=== PATIENT | male | born 1990 | race Caucasian/White ===

== ENCOUNTER 2017-08-06 07:28 | Emergency (ER) | payer MEDICAID ==
[2017-08-06 07:40] VITALS: BP 136/80; PULSE 73; RESP 16; TEMP 98; O2SAT 100; BMI 37.2
[2017-08-06] MEDS ORDERED: Sodium Chloride 0.9% 1,000 ML IV STA (07:58)
--- NOTE | 2017-08-06 08:03 | ED PDOC ---
HPI: Abdomen Time Seen by Provider: 08/06/17 07:43 Chief Complaint (Nursing): GI Problem Chief Complaint (Provider): GI Problem History Per: Patient History/Exam Limitations: no limitations Onset/Duration Of Symptoms: Days (x2) Current Symptoms Are (Timing): Still Present Additional Complaint(s): Oscar Do is a 26 year old male with a chief complaint of intermittent epigastric pain that he has been experiencing for the past 2 days with associated diarrhea and two episodes of vomiting. Patient denies any fever or genitourinary symptoms. Past Medical History Reviewed: Historical Data, Nursing Documentation, Vital Signs Vital Signs: Last Vital Signs Temp 98.0 F 08/06/17 07:38 Pulse 73 08/06/17 07:38 Resp 16 08/06/17 07:38 BP 136/80 08/06/17 07:38 Pulse Ox 100 08/06/17 10:13 - Medical History PMH: Kidney Stones, Chronic Kidney Disease - Family History Family History: States: Unknown Family Hx - Home Medications Home Medications: Ambulatory Orders Medication Instructions Recorded Famotidine [Pepcid] 20 mg PO BID #20 tab 08/06/17 Ondansetron ODT [Zofran ODT] 4 mg PO Q8H PRN #20 odt 08/06/17 - Allergies Allergies/Adverse Reactions: Allergies Allergy/AdvReac Type Severity Reaction Status Date / Time No Known Allergies Allergy Verified 07/04/15 09:02 Review of Systems Constitutional: Negative for: Fever Gastrointestinal: Positive for: Vomiting (x2), Abdominal Pain (epigastric), Diarrhea Genitourinary Male: Negative for: Dysuria, Frequency, Incontinence, Hematuria Physical Exam - Reviewed Nursing Documentation Reviewed: Yes Vital Signs Reviewed: Yes - Physical Exam Appears: Positive for: Non-toxic, No Acute Distress Head Exam: Positive for: ATRAUMATIC, NORMOCEPHALIC Skin: Positive for: Normal Color, Warm Eye Exam: Positive for: Normal appearance, EOMI, PERRL ENT: Positive for: Normal ENT Inspection Neck: Positive for: Normal, Painless ROM Cardiovascular/Chest: Positive for: Regular Rate, Rhythm. Negative for: Murmur Respiratory: Positive for: Normal Breath Sounds. Negative for: Wheezing Gastrointestinal/Abdominal: Positive for: Tenderness (mild epigastric/Right upper quadrant TTP. Negative Jewell's sign.). Negative for: Normal Exam, Rebound Back: Positive for: Normal Inspection. Negative for: L CVA Tenderness, R CVA Tenderness Extremity: Positive for: Normal ROM. Negative for: Deformity, Swelling Neurologic/Psych: Positive for: Alert, Oriented. Negative for: Motor/Sensory Deficits - Laboratory Results Result Diagrams: 08/06/17 08:00 08/06/17 08:00 - ECG O2 Sat by Pulse Oximetry: 100 (RA) Pulse Ox Interpretation: Normal Medical Decision Making Medical Decision Making: Impression: Gastroenteritis Plan: * US Abdomen * CMP * CBC * Lipase * Urine dip * Urinaysis * Bentyl 20 mg PO * Zofran 4 mg IV * NaCl 1000 mLs at 1000 mLs/hr * Reevaluation US Abdomen FINDINGS: LIVER: Measures 15.7 cm in length. Normal echogenicity of the liver parenchyma. No mass. No intrahepatic bile duct dilatation. GALLBLADDER: Unremarkable. No gallstones. COMMON BILE DUCT: Measures 3.0 mm. No stones. No dilatation. PANCREAS: The tail of the pancreas is obscured by overlying bowel gas with remainder unremarkable. RIGHT KIDNEY: Measures 13.3 cm in length. Normal echogenicity. No calculus, mass, or hydronephrosis. AORTA: Obscured by bowel gas. IVC: Obscured by bowel gas. OTHER FINDINGS: None . IMPRESSION: Unremarkable liver and visualized biliary tree. However, the pancreas is obscured by overlying bowel gas with the tail with the remainder unremarkable. No obstructive uropathy right kidney. Abdominal aorta and inferior vena cava are obscured by overlying bowel gas. Scribe Attestation: Documented by Thania Johnson, acting as a scribe for Jessi Rizo MD. Provider Scribe Attestation: All medical record entries made by the Scribe were at my direction and personally dictated by me. I have reviewed the chart and agree that the record accurately reflects my personal performance of the history, physical exam, medical decision making, and the department course for this patient. I have also personally directed, reviewed, and agree with the discharge instructions and disposition. Disposition - Clinical Impression Clinical Impression: Gastroenteritis - Disposition Referrals: [facility] [Outside] Disposition: Routine/Home Disposition Time: 10:29 Condition: STABLE Prescriptions: Famotidine [Pepcid] 20 mg PO BID #20 tab Ondansetron ODT [Zofran ODT] 4 mg PO Q8H PRN #20 odt PRN Reason: Nausea/Vomiting Instructions: Gastroenteritis (ED) Forms: [facility] (Maltese), [facility] ED School/Work Excuse
[2017-08-06 08:17] LABS: BASO # 0.1 K/uL (0.0-0.2); BASO % 0.7 % (0.0-2.0); EOS # 0.1 K/uL (0.0-0.7); EOS % 1.7 % (0.0-4.0); HEMOGLOBIN 17.8 g/dL (12.0-18.0); LYMPH # 2.2 K/uL (1.0-4.3); LYMPH % 30.2 % (20.0-40.0); MEAN CORPUSCULAR HEMOGLOBIN 31.9 pg (27.0-31.0); MEAN PLATELET VOLUME 8.9 fl (7.2-11.7); MONO # 0.9 K/uL (0.0-0.8); MONO % 12.3 % (0.0-10.0); NEUT # 3.9 K/uL (1.8-7.0); NEUT % 55.1 % (50.0-75.0); NRBC % 0.2 % (0.0-0.0); RBC 5.58 Mil/uL (4.40-5.90); RED CELL DISTRIBUTION WIDTH 13.2 % (11.5-14.5); WHITE BLOOD COUNT 7.1 K/uL (4.8-10.8)
[2017-08-06 08:23] LABS: ALB/GLOB RATIO 1.3 (1.0-2.1); ALBUMIN 4.3 g/dL (3.5-5.0); ALT/SGPT 52 U/L (21-72); AST/SGOT 25 U/L (17-59); BLOOD UREA NITROGEN 14 mg/dl (9-20); CALCIUM 9.2 mg/dL (8.4-10.2); GFR AFRICAN-AMERICAN > 60; GFR NON-AFRICAN AMERICAN > 60; LIPASE 53 U/L (23-300)
[2017-08-06 09:07] LABS: SQUAMOUS EPITHIAL < 1 /hpf (0-5); URINE AMORPHOUS SEDIMENT RARE /ul (<OCC); URINE BACTERIA RARE (<OCC); URINE BILIRUBIN NEGATIVE (NEGATIVE); URINE BLOOD SMALL (NEGATIVE); URINE CLARITY SLIGHTY-CLOUDY (Clear); URINE COLOR YELLOW (YELLOW); URINE GLUCOSE (UA) NEG (Normal); URINE LEUKOCYTE ESTERASE NEG Leu/uL (Negative); URINE NITRATE NEGATIVE (NEGATIVE); URINE PROTEIN NEGATIVE (NEGATIVE); URINE UROBILINOGEN 0.2-1.0 mg/dL (0.2-1.0)
--- NOTE | 2017-08-06 09:49 | US ---
HISTORY: Epigastric/RUQ pain COMPARISON: Unenhanced and pelvis CT 07/04/2015. TECHNIQUE: Sonographic evaluation of the right upper quadrant of the abdomen. FINDINGS: LIVER: Measures 15.7 cm in length. Normal echogenicity of the liver parenchyma. No mass. No intrahepatic bile duct dilatation. GALLBLADDER: Unremarkable. No gallstones. COMMON BILE DUCT: Measures 3.0 mm. No stones. No dilatation. PANCREAS: The tail of the pancreas is obscured by overlying bowel gas with remainder unremarkable. RIGHT KIDNEY: Measures 13.3 cm in length. Normal echogenicity. No calculus, mass, or hydronephrosis. AORTA: Obscured by bowel gas. IVC: Obscured by bowel gas. OTHER FINDINGS: None . IMPRESSION: Unremarkable liver and visualized biliary tree. However, the pancreas is obscured by overlying bowel gas with the tail with the remainder unremarkable. No obstructive uropathy right kidney. Abdominal aorta and inferior vena cava are obscured by overlying bowel gas.
== END 2017-08-06 10:37 | disposition home or self-care (01) ==
LOC: H.ER 07:28
DX: K52.9 Noninfective gastroenteritis and colitis, unspecified (principal); Z87.442 Personal history of urinary calculi
CPT/HCPCS: 76705; 80053; 81003; 83690; 85025; 96360; 99283; J2405; J7040

== ENCOUNTER 2017-08-29 20:48 | Emergency (ER) | payer MEDICAID ==
[2017-08-29 20:48] VITALS: BMI 37.2
[2017-08-29 21:06] VITALS: BP 143/70; PULSE 64; RESP 17; TEMP 97.9; O2SAT 98
--- NOTE | 2017-08-29 21:15 | ED PDOC ---
HPI: CCC, URI, Sore Throat Time Seen by Provider: 08/29/17 21:08 Chief Complaint (Nursing): Cough, Cold, Congestion Chief Complaint (Provider): cough History Per: Patient History/Exam Limitations: no limitations Have you had recent travel within the past 21 days to any of the following countries: [place], [place], [place] or [place]?: No Onset/Duration Of Symptoms: Days (2) Current Symptoms Are (Timing): Still Present Location Of Pain: denies: Ear(s), Throat, Sinus/es, Diffuse Myalgias, Headache Sick Contacts (Context): None Associated Symptoms: Cough. denies: Fever, Chills, Sore Throat, Sputum, Neck Pain, Sinus Drainage, Myalgias, Nasal Congestion, Nausea, Vomiting, Diarrhea Ear Symptoms: Bilateral: None Past Medical History Reviewed: Historical Data, Nursing Documentation, Vital Signs Vital Signs: Last Vital Signs Temp 97.9 F 08/29/17 21:03 Pulse 64 08/29/17 21:03 Resp 17 08/29/17 21:03 BP 143/70 08/29/17 21:03 Pulse Ox 98 08/29/17 21:03 - Medical History PMH: Kidney Stones, Chronic Kidney Disease - Family History Family History: States: Unknown Family Hx - Home Medications Home Medications: Ambulatory Orders Medication Instructions Recorded Famotidine [Pepcid] 20 mg PO BID #20 tab 08/06/17 Ondansetron ODT [Zofran ODT] 4 mg PO Q8H PRN #20 odt 08/06/17 Albuterol HFA [Ventolin HFA 90 2 puff IH Q6 #200 puff 08/29/17 mcg/actuation (8 g)] Dextromethorphan Polistirex 30 mg PO BID #100 [email or web address] 08/29/17 [Delsym] - Allergies Allergies/Adverse Reactions: Allergies Allergy/AdvReac Type Severity Reaction Status Date / Time No Known Allergies Allergy Verified 07/04/15 09:02 Review of Systems ROS Statement: Except As Marked, All Systems Reviewed And Found Negative Constitutional: Negative for: Fever, Chills Respiratory: Positive for: Cough. Negative for: Shortness of Breath, Sputum Physical Exam - Reviewed Nursing Documentation Reviewed: Yes Vital Signs Reviewed: Yes - Physical Exam Appears: Positive for: Well, Non-toxic, No Acute Distress Skin: Positive for: Normal Color, Warm, DRY Eye Exam: Positive for: EOMI, Normal appearance, PERRL ENT: Positive for: Normal ENT Inspection Cardiovascular/Chest: Positive for: Regular Rate, Rhythm Respiratory: Positive for: CNT, Normal Breath Sounds Neurologic/Psych: Positive for: Alert, Oriented - ECG O2 Sat by Pulse Oximetry: 98 Medical Decision Making Medical Decision Making: dx: viral-d/c with delysm and albuterol with f.u with pmd Disposition - Clinical Impression Clinical Impression: Cough - Patient ED Disposition Is Patient to be Admitted: No Counseled Patient/Family Regarding: Studies Performed, Diagnosis, Need For Followup, Rx Given - Disposition Disposition: Routine/Home Disposition Time: 21:15 Condition: STABLE Prescriptions: Albuterol HFA [Ventolin HFA 90 mcg/actuation (8 g)] 2 puff IH Q6 #200 puff Dextromethorphan Polistirex [Delsym] 30 mg PO BID #100 [email or web address] Instructions: Upper Respiratory Infection (ED)
== END 2017-08-29 21:50 | disposition home or self-care (01) ==
LOC: H.ER 20:48
DX: J06.9 Acute upper respiratory infection, unspecified (principal); Z87.442 Personal history of urinary calculi

== ENCOUNTER 2017-12-21 06:53 | Emergency (ER) | payer MEDICAID, OTHER ==
[2017-12-21 06:53] VITALS: BMI 37.2
[2017-12-21 07:15] VITALS: BP 107/72; PULSE 75; RESP 18; TEMP 97.6; O2SAT 98
--- NOTE | 2017-12-21 08:09 | ED PDOC ---
HPI: CCC, URI, Sore Throat Time Seen by Provider: 12/21/17 07:05 Chief Complaint (Nursing): ENT Problem Chief Complaint (Provider): Sore throat History Per: Patient History/Exam Limitations: no limitations Onset/Duration Of Symptoms: Days (x2) Current Symptoms Are (Timing): Still Present Location Of Pain: Throat Sick Contacts (Context): Family Member(s) (13 month old son) Associated Symptoms: Sore Throat. denies: Fever, Chills, Other (urinary symptoms) Ear Symptoms: Bilateral: None Additional Complaint(s): Oscar Do is a 27 year old male, with no significant past medical history , who presents to the emergency department complaining of sore throat onset for x2 days. He is also complaining of a cough at night. Patient reports last week he had a cold and came to the ER concerned the symptoms might come back. He took ibuprofen last night with minimal relief. Patient states his 13 month old son is sick at home. He denies any fever, chills, rash, urinary symptoms, headache or chest pain. No further medical complaints. PMD: None provided. Past Medical History Reviewed: Historical Data, Nursing Documentation, Vital Signs Vital Signs: Last Vital Signs Temp 97.6 F 12/21/17 07:13 Pulse 75 12/21/17 07:13 Resp 18 12/21/17 07:13 BP 107/72 12/21/17 07:13 Pulse Ox 98 12/21/17 08:14 - Medical History PMH: Kidney Stones, Chronic Kidney Disease - Surgical History Surgical History: No Surg Hx - Family History Family History: States: Unknown Family Hx - Living Arrangements Living Arrangements: With Family - Social History Current smoker - smoking cessation education provided: No Alcohol: None Drugs: Cannabis - Home Medications Home Medications: Ambulatory Orders Medication Instructions Recorded Acetaminophen [Tylenol 325mg tab] 650 mg PO Q6H PRN #50 tab 12/21/17 Lidocaine 2% Viscous 10 ml MM Q4H PRN #1 bottle 12/21/17 - Allergies Allergies/Adverse Reactions: Allergies Allergy/AdvReac Type Severity Reaction Status Date / Time No Known Allergies Allergy Verified 12/21/17 07:16 Review of Systems Constitutional: Negative for: Fever, Chills ENT: Positive for: Throat Pain Cardiovascular: Negative for: Chest Pain Respiratory: Positive for: Cough Genitourinary Male: Negative for: Dysuria, Frequency, Incontinence Skin: Negative for: Rash Neurological: Negative for: Headache Physical Exam - Reviewed Nursing Documentation Reviewed: Yes Vital Signs Reviewed: Yes - Physical Exam Appears: Positive for: Well, Non-toxic, No Acute Distress Head Exam: Positive for: ATRAUMATIC, NORMAL INSPECTION, NORMOCEPHALIC Skin: Positive for: Normal Color, Warm, Dry Eye Exam: Positive for: Normal appearance, EOMI, PERRL ENT: Positive for: Pharyngeal Erythema (tonsils, uvula and hard palate erythema. ), Other (Uvula no deviation. No asymmetric swelling.). Negative for : Tonsillar Exudate, Tonsillar Swelling Neck: Positive for: Painless ROM, Supple Extremity: Positive for: Normal ROM. Negative for: Deformity, Swelling Neurologic/Psych: Positive for: Alert, Oriented - ECG O2 Sat by Pulse Oximetry: 98 (RA) Pulse Ox Interpretation: Normal Medical Decision Making Medical Decision Making: Initial Impression: Strep throat Initial Plan: --Tylenol 325mg tab --Throat culture --Rapid Strep Group A Antigen --Reevaluation Scribe Attestation: Documented by Hayder Mcdaniel, acting as a scribe for Alexia Rodriguez MD Provider Scribe Attestation: All medical record entries made by the Scribe were at my direction and personally dictated by me. I have reviewed the chart and agree that the record accurately reflects my personal performance of the history, physical exam, medical decision making, and the department course for this patient. I have also personally directed, reviewed, and agree with the discharge instructions and disposition. 9.00a - rapid strep negative. culture pending. Will discharge with meds for symptoms. Disposition - Clinical Impression Clinical Impression: Pharyngitis - Patient ED Disposition Is Patient to be Admitted: No Doctor Will See Patient In The: Office Counseled Patient/Family Regarding: Diagnosis, Need For Followup, Rx Given - Disposition Referrals: [facility] [Outside] [facility] [email or web address] [facility] [Outside] [facility] [Outside] Disposition: Routine/Home Disposition Time: 09:06 Condition: STABLE Prescriptions: Acetaminophen [Tylenol 325mg tab] 650 mg PO Q6H PRN #50 tab PRN Reason: Pain, Mild (1-3) Lidocaine 2% Viscous 10 ml MM Q4H PRN #1 bottle PRN Reason: Sore Throat Instructions: Sore Throat in Adults Forms: [facility] (Sao T[place]an) - POA Present On Arrival: None
== END 2017-12-21 09:25 | disposition home or self-care (01) ==
LOC: H.ER 06:53
DX: J02.9 Acute pharyngitis, unspecified (principal); N18.9 Chronic kidney disease, unspecified; Z87.442 Personal history of urinary calculi

== ENCOUNTER 2019-01-29 08:14 | Emergency (ER) | payer OTHER ==
[2019-01-29 08:17] VITALS: BMI 37.7
--- NOTE | 2019-01-29 08:40 | ED PDOC ---
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 Pain is sharp and pressure- like, intolerable, radiates around into LLQ abdomen and suprapubic. Pt reports 2-3 bowel movements which are small in quantity, has to push really hard and spotting on toilet paper. No ill contacts No recent travel. Pt denies fever, chills, nausea, vomiting, dysuria, urinary frequency, hematuria, diarrhea, rash or edema. PMD: none NKDA Meds: none PMHx: Horseshoe kidneys PSHx: denies FHx: NC SHx: No tobacco, alcohol or rec drugs. Past Medical History Vital Signs: Last Vital Signs Temp 97.6 F 01/29/19 08:16 Pulse 52 L 01/29/19 08:16 Resp 20 01/29/19 08:16 BP 150/77 01/29/19 08:16 Pulse Ox 99 01/29/19 08:16 - Medical History PMH: Kidney Stones, Chronic Kidney Disease - Family History Family History: States: Unknown Family Hx - Home Medications Home Medications: Ambulatory Orders Medication Instructions Recorded Acetaminophen [Tylenol 325mg tab] 650 mg PO Q6H PRN #50 tab 12/21/17 Lidocaine 2% Viscous 10 ml MM Q4H PRN #1 bottle 12/21/17 - Allergies Allergies/Adverse Reactions: Allergies Allergy/AdvReac Type Severity Reaction Status Date / Time No Known Allergies Allergy Verified 12/21/17 07:16 Review of Systems Constitutional: Negative for: Fever, Chills Eyes: Negative for: Pain ENT: Negative for: Ear Pain, Ear Discharge Cardiovascular: Negative for: Chest Pain, Palpitations Respiratory: Negative for: Cough, Shortness of Breath, Hemoptysis Gastrointestinal: Positive for: Abdominal Pain, Constipation. Negative for: Nausea, Vomiting, Diarrhea Genitourinary Male: Negative for: Dysuria, Frequency, Hematuria Musculoskeletal: Negative for: Neck Pain, Shoulder Pain Skin: Negative for: Rash Physical Exam - Physical Exam Appears: Positive for: Well, Uncomfortable Skin: Positive for: Normal Color Eye Exam: Positive for: Normal appearance Neck: Positive for: Normal, Painless ROM, Supple Cardiovascular/Chest: Positive for: Regular Rate, Rhythm Respiratory: Positive for: Normal Breath Sounds Gastrointestinal/Abdominal: Positive for: Soft, Tenderness (Lower abdomen). Negative for: Distended, Guarding, Rebound Back: Positive for: Normal Inspection, L CVA Tenderness. Negative for: R CVA Tenderness, Vertebral Tenderness Extremity: Positive for: Normal ROM, Tenderness - Laboratory Results Result Diagrams: 01/29/19 09:13 01/29/19 09:13 - ECG O2 Sat by Pulse Oximetry: 99 Medical Decision Making Medical Decision Making: At 08:37, --IV Toradol and IV NS bolus ordered. --CBC, CMP adn U/A ordered --CT Abdomen/pelvis ordered At 11:00 --CT Abd/pelvis reviewed, showed calculi at bladder. --Pain has improved remarkably. --Pt stable, tolerating PO, is discharged home, ER precautions given. F/U with PMD within 7 days, increase water intake. Disposition - Clinical Impression Clinical Impression: Renal calculus or stone - Patient ED Disposition Is Patient to be Admitted: No Counseled Patient/Family Regarding: Studies Performed, Diagnosis - Disposition Referrals: [facility] [Outside] Disposition: Routine/Home Disposition Time: 11:15 Condition: IMPROVED Additional Instructions: Take Ibuprofen/Advil at home as needed for pain. Increase water intake to 2L of water a day at least. Instructions: Kidney Stones in Adults Forms: [facility] (Hungarian), [facility] ED School/Work Excuse - POA Present On Arrival: None
[2019-01-29] MEDS: Sodium Chloride 0.9% 1,000 ML IV SCH ×2 (09:15→10:02)
[2019-01-29 09:25] LABS: BASO % 0.4 % (0.0-2.0); EOS # 0.1 K/uL (0.0-0.7); EOS % 1.3 % (0.0-4.0); HEMOGLOBIN 17.4 g/dL (12.0-18.0); LYMPH # 3.2 K/uL (1.0-4.3); MEAN CELL VOLUME 91.8 fl (80.0-94.0); MEAN CORPUSCULAR HEMOGLOBIN 32.1 pg (27.0-31.0); MEAN CORPUSCULAR HGB CONC 34.9 g/dL (33.0-37.0); MEAN PLATELET VOLUME 9.3 fl (7.2-11.7); MONO # 0.9 K/uL (0.0-0.8); NEUT # 7.2 K/uL (1.8-7.0); NEUT % 62.3 % (50.0-75.0); NRBC % 0.2 % (0.0-0.0); RBC 5.43 Mil/uL (4.40-5.90); RED CELL DISTRIBUTION WIDTH 13.3 % (11.5-14.5); WHITE BLOOD COUNT 11.5 K/uL (4.8-10.8)
[2019-01-29 09:44] LABS: ALB/GLOB RATIO 1.4 (1.0-2.1); ALBUMIN 4.6 g/dL (3.5-5.0); ALT/SGPT 35 U/L (21-72); AST/SGOT 31 U/L (17-59); BLOOD UREA NITROGEN 13 mg/dl (9-20); CALCIUM 9.4 mg/dL (8.4-10.2); GFR NON-AFRICAN AMERICAN > 60
--- NOTE | 2019-01-29 10:28 | CT ---
Date of service: 01/29/2019 PROCEDURE: CT Abdomen and Pelvis without intravenous contrast HISTORY: left flank pain COMPARISON: Noncontrast abdomen pelvis CT 07/04/2015. TECHNIQUE: Helical CT of the abdomen and pelvis was performed without oral or intravenous contrast as per referring physician request. Coronal and sagittal reformats were generated. Radiation dose: Total exam DLP = 971.82 mGy-cm. This CT exam was performed using one or more of the following dose reduction techniques: Automated exposure control, adjustment of the mA and/or kV according to patient size, and/or use of iterative reconstruction technique. FINDINGS: LOWER THORAX: 0.5 mm stable noncalcified benign nodule or varix left lower lobe best seen in image 10 series 5. LIVER: Unremarkable. No gross lesion or ductal dilatation. GALLBLADDER AND BILE DUCTS: Unremarkable. PANCREAS: Unremarkable. No gross lesion or ductal dilatation. SPLEEN: Normal size nonfocal spleen measuring up to 11.2 cm greatest dimension. ADRENALS: Unremarkable. No mass. KIDNEYS AND URETERS: Horseshoe kidney reiterated with no definite hydronephrosis appreciable. However, there is borderline left hydroureter with a 4.0 mm spindle shaped calculus identified at the left urinary bladder base versus UV junction. Trace left perinephric reactive changes are identified with none on the right. Punctate intrarenal calculus is identified at the mid to inferior segment right renal moiety. A solitary punctate intrarenal calculus is also likely present at the inferior segment left renal moiety, best seen in the coronal reconstruction. Right ureter appears normal caliber throughout. VASCULATURE: Unremarkable. No aortic aneurysm. No aortic atherosclerotic calcification or mural plaque present. BOWEL: Stomach is collapsed as well as numerous bowel loops limiting the interpretation. No bowel obstruction is identified and there is no pericolic or hugo-intestinal reaction to suggest segmental colitis or enteritis. APPENDIX: Unremarkable. Normal appendix. PERITONEUM: Unremarkable. No free fluid. No free air. LYMPH NODES: Unremarkable. No enlarged lymph nodes. BLADDER: Unremarkable. REPRODUCTIVE: Unremarkable. BONES: No acute fracture. OTHER FINDINGS: None. IMPRESSION: A 4 mm spindle shaped calculus is felt to be within the urinary bladder base rather than distal left UV junction given near normal caliber of the left ureter which exhibits borderline hydroureter. No hydronephrosis within reiterated horseshoe kidney. Nonobstructing, punctate intrarenal calculi identified at the mid to lower right and lower left renal moieties, as discussed above.
[2019-01-29 11:30] LABS: URINE BACTERIA RARE (<OCC); URINE BILIRUBIN NEGATIVE (NEGATIVE); URINE BLOOD LARGE (NEGATIVE); URINE CLARITY CLEAR (Clear); URINE COLOR YELLOW (YELLOW); URINE GLUCOSE (UA) NEG (NEGATIVE); URINE LEUKOCYTE ESTERASE NEG Leu/uL (Negative); URINE PROTEIN NEGATIVE (NEGATIVE); URINE UROBILINOGEN 0.2-1.0 mg/dL (0.2-1.0)
[2019-01-29 11:46] VITALS: BP 102/62; PULSE 66; RESP 18; TEMP 97.7; O2SAT 98
== END 2019-01-29 11:44 | disposition home or self-care (01) ==
LOC: H.ER 08:14
DX: N20.2 Calculus of kidney with calculus of ureter (principal)
CPT/HCPCS: 74176; 80053; 81003; 85025; 96361; 96374; 99285; J1885; J7030